=== PATIENT | male | born 1985 | race Caucasian/White ===

== ENCOUNTER 2017-01-05 08:00 | Emergency (ER) | payer OTHER ==
[2017-01-05 08:05] VITALS: BP 131/75
[2017-01-05] MEDS ORDERED: CEPH-264 PO (08:56)
--- NOTE | 2017-01-05 08:56 | PHYS DOC ---
Past History Past Medical History: No Pertinent History Past Surgical History: No Surgical History Alcohol Use: None Drug Use: None Adult General Chief Complaint Chief Complaint: ABSCESS HPI HPI Patient is a 31-year-old male who presents with complaints of lesion in his inner thigh of the left leg. Patient noticed mild redness yesterday but today had expanded because he felt a little bit harder so he came over to get it checked out. Patient has been his usual state of health until this episode. Patient is unaware of having been bitten by anything. Review of Systems Review of Systems Constitutional: Denies fever or chills [] Eyes: Denies change in visual acuity, redness, or eye pain [] HENT: Denies nasal congestion or sore throat [] Respiratory: Denies cough or shortness of breath [] Cardiovascular: No chest pain GI: Denies abdominal pain, , vomiting, or diarrhea [] : Denies dysuria or hematuria [] Musculoskeletal: Denies back pain or joint pain [] Integument: Lesion on left inner thigh Neurologic: Denies headache, focal weakness or sensory changes [] Physical Exam Physical Exam Constitutional: Well developed, well nourished, no acute distress, non-toxic appearance. [] HENT: Normocephalic, atraumatic, Eyes:EOMI, conjunctiva normal, no discharge. [] Neck: Normal range of motion, trachea midline no stridor. [] Cardiovascular: Normal perfusion[] Lungs & Thorax: No tachypnea[] Abdomen: No distention[] Skin: Erythematous lesion in the left inner thigh, no weeping, and no desquamation, he has a central lesion consistent with a bite of an insect, there is mild induration center but no fluctuance, there is no evidence of abscess. No evidence of Tez's Back: No tenderness, no CVA tenderness. [] Extremities: No tenderness, no cyanosis, , ROM intact, no edema. [] Neurologic: Alert and oriented X 3, normal motor function, no focal deficits noted. [] Psychologic: Affect normal, judgement normal, mood normal. [] Current Patient Data Vital Signs Vital Signs Date Time Temp Pulse Resp B/P (MAP) Pulse Ox O2 Delivery O2 Flow Rate FiO2 01/05/17 08:05 97.9 65 16 98 Room Air EKG EKG [] Radiology/Procedures Radiology/Procedures [] Course & Med Decision Making Course & Med Decision Making Pertinent Labs and Imaging studies reviewed. (See chart for details) [] Dragon Disclaimer Dragon Disclaimer This chart was dictated in whole or in part using Voice Recognition software in a busy, high-work load, and often noisy Emergency Department environment. It may contain unintended and wholly unrecognized errors or omissions. Departure Departure: Impression: Primary Impression: Insect bite Additional Impression: Cellulitis Disposition: HOME, SELF-CARE Condition: STABLE Referrals: LUIS ZAMORA (PCP) Follow-up with your doctor for recheck and reevaluation and discuss this ED visit, please follow-up in 3-5 days for recheck, sooner if your symptoms are worsening or other concerning symptoms develop. If your doctor is not available please return to the ED immediately Additional Instructions: She may take ibuprofen and/or Tylenol for pain control Scripts Cephalexin (KEFLEX) 500 Mg Capsule 1 CAP PO TID, #30 CAP Prov: Courtney JOHNSON MD 01/05/17 Problem Qualifiers Courtney JOHNSON MD Jan 05, 2017 08:56
== END 2017-01-05 09:00 | disposition home or self-care (01) ==
LOC: ER 08:15
DX: S70.362A Insect bite (nonvenomous), left thigh, initial encounter (principal); L03.116 Cellulitis of left lower limb; W57.XXXA Bitten or stung by nonvenomous insect and other nonvenomous arthropods, initial encounter; Y93.89 Activity, other specified; Y99.8 Other external cause status; Y92.89 Other specified places as the place of occurrence of the external cause
CPT/HCPCS: 99283

== ENCOUNTER 2021-08-09 16:06 | Emergency (ER) | payer OTHER ==
[~2021-08-09] VITALS: Ht 182.9 cm; Wt 92.0 kg
[~2021-08-09 16:06] MED LIST: CEPH-264 PO
[2021-08-09 17:12] LABS: BASO % 1 % (0-3); EOS # 0.1 x10^3/uL (0.0-0.7); EOS % 4 % (0-3); HEMATOCRIT 42.1 % (39.0-53.0); HEMOGLOBIN 14.3 g/dL (13.0-17.5); LYMPH # 1.1 x10^3/uL (1.0-4.8); LYMPH % 38 % (24-48); MEAN CORPUSCULAR HEMOGLOBIN 29 pg (25-35); MEAN CORPUSCULAR HGB CONC 34 g/dL (31-37); MEAN CORPUSCULAR VOLUME 86 fL (79-100); MONO # 0.6 x10^3/uL (0.0-1.1); MONO % 23 % (0-9); NEUT % 35 % (31-73); PLATELET COUNT 149 x10^3/uL (140-400); RED BLOOD COUNT 4.88 x10^6/uL (4.30-5.70); RED CELL DISTRIBUTION WIDTH 13.1 % (11.5-14.5); WHITE BLOOD COUNT 2.8 x10^3/uL (4.0-11.0)
[2021-08-09 17:13] LABS: CALCIUM 8.8 mg/dL (8.5-10.1); CREATININE 0.9 mg/dL (0.7-1.3); GFR 94.4; POTASSIUM 3.9 mmol/L (3.5-5.1)
[2021-08-09 17:19] LABS: ALBUMIN 3.9 g/dL (3.4-5.0); ALBUMIN/GLOBULIN RATIO 1.4 (1.0-1.7); MAGNESIUM 2.4 mg/dL (1.8-2.4); TOTAL BILIRUBIN 0.6 mg/dL (0.2-1.0); TOTAL PROTEIN 6.7 g/dL (6.4-8.2)
--- NOTE | 2021-08-09 17:34 | RAD ---
Study: XR CHEST 1V Indication: Chest pain. Comparison: None. Findings: The cardiomediastinal silhouette and idalia are within normal limits. No localized airspace opacity, pl eural effusion or pneumothorax. Impression: No acute radiographic abnormality of the chest. Electronically signed by: DEE DEE KNIGHT MD (08/09/2021 5:32 PM) [facility]
[2021-08-09] MEDS ORDERED: KETOROLAC 15 MG/ML VIAL. IVP ONE (18:30)
--- NOTE | 2021-08-09 18:32 | PHYS DOC ---
Past History Past Medical History: No Pertinent History (LÁZARO PERRY APRN) Past Surgical History: Other Additional Past Surgical Histo: knee surgery X 4 (LÁZARO PERRY APRN) Alcohol Use: None Drug Use: None (LÁZARO PERRY APRN) General Adult EDM: Chief Complaint: CHEST PAIN HPI: HPI: Patient is a 36-year-old male who presents with chest pain that started 930 this morning. Patient states he was sitting at his desk working when the chest pressure started. Pain is been constant. Denies taking anything for pain. Denies nausea/vomiting/diarrhea. No recent illness or fever. Denies radiation of pain. No medical history. (LÁZARO PERRY APRN) Review of Systems: Review of Systems: ROS At least 10 ROS systems have been reviewed and are negative except as documented in the HPI. General: Negative except as outlined in HPI above. Skin: Negative except as outlined in HPI above. HEENT: Negative except as outlined in HPI above. Neck: Negative except as outlined in HPI above. Respiratory: Negative except as outlined in HPI above.. Cardiovascular: Negative except as outlined in HPI above. Abdomen: Negative except as outlined in HPI above. : Negative except as outlined in HPI above. Back/MSK: Negative except as outlined in HPI above. Neuro: Negative except as outlined in HPI above. Psych: Negative except as outlined in HPI above. (LÁZARO PERRY APRN) Allergies: Allergies: Allergies Coded Allergies Type Severity Reaction Last Updated Verified No Known Drug Allergies 08/09/21 No (LÁZARO PERRY APRN) Physical Exam: PE: Constitutional: Well developed, well nourished, no acute distress, non-toxic appearance. [] HENT: Normocephalic, atraumatic, bilateral external ears normal, oropharynx moist, no oral exudates, nose normal. [] Eyes: PERRLA, EOMI, conjunctiva normal, no discharge. [] Neck: Normal range of motion, no tenderness, supple, no stridor. [] Cardiovascular:Heart rate regular rhythm, no murmur [] Lungs & Thorax: Bilateral breath sounds clear to auscultation [] Abdomen: Bowel sounds normal, soft, no tenderness, no masses, no pulsatile masses. [] Skin: Warm, dry, no erythema, no rash. [] Back: No tenderness, no CVA tenderness. [] Extremities: No tenderness, no cyanosis, no clubbing, ROM intact, no edema. [] Neurologic: Alert and oriented X 3, normal motor function, normal sensory function, no focal deficits noted. [] Psychologic: Affect normal, judgement normal, mood normal. [] (LÁZARO PERRY APRN) Current Patient Data: Labs: Laboratory Tests Test 08/09/21 16:25 White Blood Count 2.8 x10^3/uL (4.0-11.0) L Red Blood Count 4.88 x10^6/uL (4.30-5.70) Hemoglobin 14.3 g/dL (13.0-17.5) Hematocrit 42.1 % (39.0-53.0) Mean Corpuscular Volume 86 fL (79-100) Mean Corpuscular Hemoglobin 29 pg (25-35) Mean Corpuscular Hemoglobin Concent 34 g/dL (31-37) Red Cell Distribution Width 13.1 % (11.5-14.5) Platelet Count 149 x10^3/uL (140-400) Neutrophils (%) (Auto) 35 % (31-73) Lymphocytes (%) (Auto) 38 % (24-48) Monocytes (%) (Auto) 23 % (0-9) H Eosinophils (%) (Auto) 4 % (0-3) H Basophils (%) (Auto) 1 % (0-3) Neutrophils # (Auto) 1.0 x10^3uL (1.8-7.7) L Lymphocytes # (Auto) 1.1 x10^3/uL (1.0-4.8) Monocytes # (Auto) 0.6 x10^3/uL (0.0-1.1) Eosinophils # (Auto) 0.1 x10^3/uL (0.0-0.7) Basophils # (Auto) 0.0 x10^3/uL (0.0-0.2) Sodium Level 140 mmol/L (136-145) Potassium Level 3.9 mmol/L (3.5-5.1) Chloride Level 102 mmol/L (98-107) Carbon Dioxide Level 32 mmol/L (21-32) Anion Gap 6 (6-14) Blood Urea Nitrogen 18 mg/dL (8-26) Creatinine 0.9 mg/dL (0.7-1.3) Estimated GFR (Cockcroft-Gault) 94.4 BUN/Creatinine Ratio 20 (6-20) Glucose Level 80 mg/dL (70-99) Calcium Level 8.8 mg/dL (8.5-10.1) Magnesium Level 2.4 mg/dL (1.8-2.4) Total Bilirubin 0.6 mg/dL (0.2-1.0) Aspartate Amino Transferase (AST) 25 U/L (15-37) Alanine Aminotransferase (ALT) 39 U/L (16-63) Alkaline Phosphatase 64 U/L (46-116) Troponin I High Sensitivity 10 ng/L (4-75) Total Protein 6.7 g/dL (6.4-8.2) Albumin 3.9 g/dL (3.4-5.0) Albumin/Globulin Ratio 1.4 (1.0-1.7) Vital Signs: Vital Signs Date Time Temp Pulse Resp B/P (MAP) Pulse Ox O2 Delivery O2 Flow Rate FiO2 08/09/21 16:10 98.1 69 18 134/83 (100) 98 (LÁZARO PERRY APRN) EKG: EKG: [] Sinus rhythm, [address] elevation or depression. (LÁZARO PERRY APRN) Radiology/Procedures: Radiology/Procedures: []Study: XR CHEST 1V Indication: Chest pain. Comparison: None. Findings: The cardiomediastinal silhouette and idalia are within normal limits. No localized airspace opacity, pleural effusion or pneumothorax. Impression: No acute radiographic abnormality of the chest. Electronically signed by: DEE DEE KNIGHT MD (08/09/2021 5:32 PM) [facility] (LÁZARO PERRY APRN) Heart Score: C/O Chest Pain: Yes HEART Score for Chest Pain: HEART Score for Chest Pain Response (Comments) Value History Slighlty/Non-Suspicious 0 ECG Normal 0 Age < 45 0 Risk Factors No Risk Factors 0 Troponin < Normal Limit 0 Total 0 Risk Factors: Risk Factors: DM, Current or recent (<one month) smoker, HTN, HLP, family history of CAD, obesity. Risk Scores: Score 0 - 3: 2.5% MACE over next 6 weeks - Discharge Home Score 4 - 6: 20.3% MACE over next 6 weeks - Admit for Clinical Observation Score 7 - 10: 72.7% MACE over next 6 weeks - Early Invasive Strategies (LÁZARO PERRY APRN) Course & Med Decision Making: Course & Med Decision Making Pertinent Labs and Imaging studies reviewed. (See chart for details) [] 28-year-old male presents with chest pain that started at 930 this morning. Work-up in ER consisted of CBC, CMP, troponin, EKG. Troponins unremarkable. EKG shows sinus rhythm, heart rate 58 bpm, no ST elevation or depression. All labs unremarkable. Chest x-ray is unremarkable. Heart score of 0. (LÁZARO PERRY APRN) Course & Med Decision Making Did not see or evaluate patient. Did not discuss patient with CIVIL TRANSPORTATION ENGINEER. Generally agree with CIVIL TRANSPORTATION ENGINEER's work-up and disposition per note (MADDY WELSH MD) Dragon Disclaimer: Dragon Disclaimer: This electronic medical record was generated, in whole or in part, using a voice recognition dictation system. (LÁZARO PERRY APRN) Departure Departure: Impression: Primary Impression: Chest pain Qualified Codes: R07.9 - Chest pain, unspecified Disposition: HOME / SELF CARE / HOMELESS Condition: STABLE Referrals: NON,STAFF (PCP) Patient Instructions: Chest Pain (Nonspecific), [id number] Additional Instructions: Patient emergency room for chest pain that started spring. All of your labs are unremarkable. Chest x-ray was unremarkable. You were given Toradol while in the ER to help with your pain. LÁZARO PERRY APRN Aug 09, 2021 18:32 MADDY WELSH MD Aug 09, 2021 22:39
[2021-08-09 18:45] VITALS: BP 104/57
--- NOTE | 2021-08-09 19:44 | EKG ---
[address] [address] Test Date: 2021-08-09 Test Time: 16:14:39 Pat Name: KELLEY SHAW Department: Room: Gender: M Grill Chef: ZAKI : 1985 Requested By: LÁZARO PERRY Order Number: [id number] Reading MD: Joe Torres Measurements Intervals [place] Rate: 58 P: 36 VA: 156 QRS: 70 QRSD: 92 T: 35 QT: 410 QTc: 406 Interpretive Statements SINUS RHYTHM NORMAL ECG RI6.02 No previous ECG available for comparison Electronically Signed On 08-17-2021 14:20:43 CDT by Joe Torres
== END 2021-08-09 18:50 | disposition home or self-care (01) ==
LOC: ER 16:06
DX: R07.89 Other chest pain (principal)
CPT/HCPCS: 36415; 71045; 80053; 83735; 84484; 85025; 93005; 96374; 99285; J1885